=== PATIENT | female | born 1940 | race Caucasian/White ===

== ENCOUNTER 2017-03-10 21:47 | Emergency (ER) | payer MEDICARE ==
[~2017-03-10 21:47] MED LIST: Iopamidol 370 76% 100 ML VIAL ONE
[2017-03-10] MEDS ORDERED: Lorazepam 2 MG/ML VIAL ONE ×2 (22:11→22:56)
[2017-03-10] MEDS ORDERED: Magnesium Sulfate 2 GM/NS 0.9% 50 ML BAG ONE (22:11)
[2017-03-10] MEDS ORDERED: Sodium Chloride 0.9% 250 ML 250 ML ONE (22:11)
[2017-03-10 22:38] LABS: #Basophils 0.1 thou/uL (0.0-0.2); #Eosinphils 0.3 thou/uL (0.0-0.7); #Lymphocytes 1.8 thou/uL (1.20-3.40); #Monocytes 0.8 thou/uL (0.11-0.59); #Neutrophils 5.9 thou/uL (1.40-6.50); %Eosinophils 3.9 % (0.0-10.0); %Lymphocytes 20.5 % (21.0-51.0); %Monocytes 9.3 % (0.0-10.0); %Neutrophils 65.3 % (42.0-75.0); Hemoglobin 12.3 g/dL (12.0-16.0); Mean Corpuscular HGB CONC 32.1 g/dL (32.0-36.0); Mean Corpuscular Volume 90.2 fl (81.0-99.0); Mean Platelet Volume 6.1 fL (7.4-10.4); Platelet Count 252 thou/uL (130-400); RBC Distribution Width 13.5 % (11.5-14.5); Red Blood Cell (RBC) Count 4.26 mill/uL (4.20-5.40)
[2017-03-10 22:53] LABS: ALT (SGPT) 13 U/L (8-55); AST (SGOT) 14 U/L (5-34); Albumin 4.1 g/dL (3.4-4.8); Alkaline Phosphatase 64 U/L (40-150); Anion Gap 20 mmol/L (10-20); BUN (Urea Nitrogen) 13 mg/dL (9.8-20.1); Bilirubin, Total 0.4 mg/dL (0.2-1.2); Calc. Creatinine Clearance 0 mL/min (70-130); Carbon Dioxide 16 mmol/L (23-31); Chloride 102 mmol/L (98-107); Estimated GFR-MDRD 49; Globulin 3.5 g/dL (2.4-3.5); Glucose 174 mg/dL (83-110); Magnesium 1.8 mg/dL (1.6-2.6); Potassium 4.2 mmol/L (3.5-5.1); Protein, Total 7.6 g/dL (6.0-8.3); Sodium 134 mmol/L (136-145)
[2017-03-10 22:54] LABS: CKMB 1.7 ng/mL (0-6.6)
[2017-03-10 23:10] LABS: Bilirubin Negative (Negative); Blood, Urine Trace (Negative); Clarity Clear (Clear); Glucose, Urine (Dipstick) Negative (Negative); Leukocyte Trace (Negative); Nitrite Negative (Negative); Protein, Urine (Dipstick) Negative (Neg-Trace); Specific Gravity, Urine 1.015 (1.005-1.030); Urobilinogen 0.2 mg/dL (0.2-1.0); pH, Urine 7.5 (5.0-9.0)
[2017-03-10 23:12] LABS: Bacteria/HPF Rare-Few HPF (None Seen); RBC/HPF 0-3 HPF (0-3); Squamous Epithelial None Seen HPF (0-3)
--- NOTE | 2017-03-10 23:24 | RAD ---
PORTABLE SEMIUPRIGHT FRONTAL CHEST RADIOGRAPH 03/10/17 COMPARISON: 03/23/16 HISTORY: Two weeks of back spasms, chest pain and back pain. FINDINGS: Extensive postoperative hardware is seen overlying the midline thoracic cage, stable. No pneumothora x, pleural fluid, focal consolidation or alveolar edema. IMPRESSION: No acute findings - stable appearance of the chest. POS: [facility]
--- NOTE | 2017-03-10 23:35 | RAD ---
THREE VIEWS LUMBAR SPINE 03/10/17 COMPARISON: None. HISTORY: Two weeks of back spasms. FINDINGS: Five lumbar type vertebral bodies are present. There is anterolisthesis of L4 on L5 measuring 4-5 mm . There is facet hypertrophy at L4-5 and L5-S1. There is disc space narrowing at L5-S1 with vacuum d isc and anterior osteophyte formation. At L1-2, there is disc space narrowing, degenerative end plat e changes and anterior osteophyte formation with retrolisthesis measuring 3-4 mm. There is atheroscl erotic calcification of the abdominal aorta. No acute osseous abnormality. IMPRESSION: Multilevel degenerative change. No acute fracture or dislocation. POS: [facility]
--- NOTE | 2017-03-10 23:38 | RAD ---
FRONTAL AND LATERAL IMAGING CHEST 03/10/17 COMPARISON: None. HISTORY: Back spasms and pain. FINDINGS: There is extensive postoperative hardware associated with the anterior midline thoracic cage. Lateral imaging demonstrates a superior end plate fracture of the mid/lower thoracic spine, likely i nvolving the T8 vertebral body. There is 50% loss of vertebral body height. There is a mild superior end plate fracture at T10. IMPRESSION: Age indeterminate thoracic spine fractures. This includes a fracture of the T8 vertebral body with a pproximately 50% loss of vertebral body height. Acuity of this fracture could be best assessed via f ollowup CT or MRI as clinically indicated. POS: [facility]
[2017-03-10] MEDS ORDERED: Fentanyl 100 MCG/2 ML VIAL ONE (23:47)
[2017-03-11] MEDS ORDERED: Fentanyl 100 MCG/2 ML VIAL ONE ×3 (00:16→03:10)
--- NOTE | 2017-03-11 08:48 | CT ---
PRELIMINARY REPORT/[facility]/EMERGENCY AFTER HOURS PROCEDURE: EXAM: CT Abdomen and Pelvis With Intravenous Contrast CLINICAL HISTORY: 77 years old, female; Pain; Abdominal pain and other: Back; Other: All over mostly rt flank; Prior s urgery; Surgery date: 6+ months; Surgery type: Cyst removed from spine; Triple bypass, 3 stents, hys terectomy; Patient HX: Past medical history includes pulmonary disease, asthma, abdominal stents, ca rdiac history, myocardial infarction (2016), treated with stent placement, number of stents: 3, trip le bypass, diabetes, on insulin, age of onset: 58; Severe abd \T\ back pain due to spasms, most bindu re to rt side; Additional info: Gfr 49 TECHNIQUE: Axial computed tomography images of the abdomen and pelvis with intravenous contrast. This CT exam w as performed using one or more of the following dose reduction techniques: automated exposure contro l, adjustment of the mA and/or kV according to patient size, and/or use of iterative reconstruction technique. Coronal and sagittal reformatted images were created and reviewed. CONTRAST: 70 mL of ISOVUE 370 administered intravenously. EXAM DATE/TIME: Exam ordered 03/11/2017 12:42 AM COMPARISON: No relevant prior studies available. FINDINGS: Lower thorax: Small hiatal hernia. ABDOMEN: Liver: Unremarkable. No mass. Gallbladder and bile ducts: Unremarkable. No calcified stones. No ductal dilation. Pancreas: Unremarkable. No mass. No ductal dilation. Spleen: Unremarkable. No splenomegaly. Adrenals: Unremarkable. No mass. Kidneys and ureters: Unremarkable. No solid mass. No hydronephrosis. Stomach and bowel: Colonic diverticulosis. No diverticulitis. No obstruction. Appendix: Appendix not visualized. No evidence of appendicitis. PELVIS: Bladder: Unremarkable. No mass. Reproductive: Prior hysterectomy. ABDOMEN and PELVIS: Intraperitoneal space: Unremarkable. No free air. No significant fluid collection. Bones/joints: No acute fracture. No dislocation. Soft tissues: Unremarkable. Vasculature: Unremarkable. No abdominal aortic aneurysm. Lymph nodes: Unremarkable. No enlarged lymph nodes. IMPRESSION: No acute findings. Thank you for allowing us to participate in the care of your patient. Dictated and Authenticated by: Kevin Gatica MD 03/11/2017 1:05 AM Central Time ([place] \T\ [place]) FINAL REPORT ABDOMEN CT WITH CONTRAST PELVIS CT WITH CONTRAST HISTORY: Severe back pain. Abdominal pain. COMPARISON: None. TECHNIQUE: An abdomen and pelvis CT is performed with IV contrast. Enteric contrast was not administered. Cor onal reformatted images are submitted for interpretation. FINDINGS: This report is in agreement with the preliminary report by [facility]. No acute abnormality was in the abd omen or pelvis. POS: [facility]
== END 2017-03-11 04:36 | disposition short-term general hospital (02) ==
LOC: NAV ERS 21:47
DX: M48.54XA Collapsed vertebra, not elsewhere classified, thoracic region, initial encounter for fracture (principal); E11.9 Type 2 diabetes mellitus without complications; I25.10 Atherosclerotic heart disease of native coronary artery without angina pectoris; J45.909 Unspecified asthma, uncomplicated; I25.2 Old myocardial infarction; I10 Essential (primary) hypertension; Z79.899 Other long term (current) drug therapy; Z79.84 Long term (current) use of oral hypoglycemic drugs
CPT/HCPCS: 71010; 72070; 72100; 74177; 80053; 81003; 81015; 82553; 83735; 84484; 85025; 93005; 96365; 96366; 96375; 96376; J1170; J2060; J3010; J3475; J7050

== ENCOUNTER 2017-05-02 09:22 | Outpatient (CLI) | payer MEDICARE ==
[2017-05-02 13:53] LABS: #Basophils 0.1 thou/uL (0.0-0.2); #Eosinphils 0.6 thou/uL (0.0-0.7); #Lymphocytes 2.1 thou/uL (1.20-3.40); #Monocytes 0.7 thou/uL (0.11-0.59); #Neutrophils 5.5 thou/uL (1.40-6.50); %Basophils 0.9 % (0.0-1.0); %Eosinophils 6.6 % (0.0-10.0); %Neutrophils 61.6 % (42.0-75.0); Hemoglobin 13.7 g/dL (12.0-16.0); Mean Corpuscular HGB CONC 31.9 g/dL (32.0-36.0); Mean Corpuscular Hemoglobin 29.3 pg (27.0-31.0); Mean Corpuscular Volume 91.7 fl (81.0-99.0); Mean Platelet Volume 7.3 fL (7.4-10.4); Platelet Count 246 thou/uL (130-400); RBC Distribution Width 13.1 % (11.5-14.5); Red Blood Cell (RBC) Count 4.67 mill/uL (4.20-5.40)
[2017-05-02 14:01] LABS: ALT (SGPT) 13 U/L (8-55); AST (SGOT) 14 U/L (5-34); Albumin 4.2 g/dL (3.4-4.8); Alkaline Phosphatase 75 U/L (40-150); Anion Gap 19 mmol/L (10-20); BUN (Urea Nitrogen) 15 mg/dL (9.8-20.1); Bilirubin, Total 0.5 mg/dL (0.2-1.2); Calc. Creatinine Clearance 0 mL/min (70-130); Carbon Dioxide 23 mmol/L (23-31); Cardiac Risk 3.3 (Less than 4.5); Chloride 102 mmol/L (98-107); Cholesterol 144 mg/dl (< 200 Desired); Estimated GFR-MDRD 63; Globulin 2.5 g/dL (2.4-3.5); Glucose 155 mg/dL (83-110); HDL Cholesterol 43 mg/dL (>60 Neg Risk); LDL Cholesterol, Calculated 63 mg/dL; Potassium 4.7 mmol/L (3.5-5.1); Protein, Total 6.7 g/dL (6.0-8.3); Sodium 139 mmol/L (136-145); Triglycerides 189 mg/dL (Less than 150)
[2017-05-02 14:31] LABS: Hemoglobin A1c 6.6 % (4.0-6.0)
[2017-05-03 18:06] LABS: Creatinine, Urine 46.41 mg/dL (47-110); Microalbumin Urine Less than 1.0 mg/dL (0.5-50.0); Microalbumin/Creat Ratio 21.5 mg/g (Less than 30)
== END 2017-05-02 09:23 | disposition home or self-care (01) ==
LOC: NAVSJIPCSP 09:22
PROVIDERS: ATTEND Internal Medicine
DX: E11.51 Type 2 diabetes mellitus with diabetic peripheral angiopathy without gangrene (principal); I70.209 Unspecified atherosclerosis of native arteries of extremities, unspecified extremity; K21.9 Gastro-esophageal reflux disease without esophagitis; E03.9 Hypothyroidism, unspecified; I10 Essential (primary) hypertension
CPT/HCPCS: 36415; 80053; 80061; 82043; 83036; 84443; 85025

== ENCOUNTER 2017-05-26 11:52 | Outpatient (CLI) | payer MEDICARE ==
[2017-05-26 13:35] LABS: Anion Gap 18 mmol/L (10-20); BUN (Urea Nitrogen) 16 mg/dL (9.8-20.1); Calc. Creatinine Clearance 0 mL/min (70-130); Calcium 10.4 mg/dL (7.8-10.44); Carbon Dioxide 22 mmol/L (23-31); Chloride 103 mmol/L (98-107); Estimated GFR-MDRD 62; Glucose 169 mg/dL (83-110); Potassium 4.7 mmol/L (3.5-5.1); Sodium 138 mmol/L (136-145)
== END 2017-05-26 11:53 | disposition home or self-care (01) ==
LOC: NAVSJIPCSP 11:52
PROVIDERS: ATTEND Internal Medicine
DX: I50.9 Heart failure, unspecified (principal)
CPT/HCPCS: 36415; 80048; 83880

== ENCOUNTER 2017-08-03 14:57 | Outpatient (CLI) | payer MEDICARE ==
--- NOTE | 2017-08-03 15:50 | RAD ---
PA AND LATERAL CHEST: History: Cough. FINDINGS: Comparison is made with exam of 03-10-17. Post op changes and metallic hardware in the anterior midline thorax again seen. The heart size is b orderline. No focal areas of consolidation, pneumothorax, or pleural effusions are seen. There are p ost op changes of left rotator cuff repair surgery. There is marked compression of the mid thoracic vertebral body. IMPRESSION: No acute process. POS: [facility]
== END 2017-08-03 14:58 | disposition home or self-care (01) ==
LOC: NAV RAD 14:57
DX: R05 Cough (principal)
CPT/HCPCS: 71020

== ENCOUNTER 2017-09-28 12:46 | Outpatient (CLI) | payer MEDICARE ==
--- NOTE | 2017-09-28 16:25 | CT ---
NONCONTRAST CT OF THE THORACIC SPINE 09/28/17 INDICATION: History of T8-T9 spinal fractures in February 2017. FINDINGS: The severe compression abnormality involving T8 appears similar to the comparison MRI in May 2017. There is some vacuum disc phenomenon seen within the fracture site as well as within the T8-T9 inter vertebral disc level. The chronic appearing superior end plate fracture of T10 appears healed and unc hanged. Diffuse osteopenia is similar. No new acute fracture is evident. The mild retropulsion of bon e fragment of T8 induces stable mild osseous central canal narrowing as well as moderate right neural foraminal narrowing which is similar to the comparison exam. IMPRESSION: 1. Stable T8 vertebra plana with mild central canal narrowing seen at T8 vertebral level and mod erate right osseous neural foraminal narrowing seen at T8-T9. 2. Stable chronic superior end plate compression fracture of T10. 3. Diffuse osteopenia. POS: [facility]
== END 2017-09-28 12:47 | disposition home or self-care (01) ==
LOC: NAV CT 12:46
PROVIDERS: ATTEND Nurse Practitioner Family
DX: S22.009D Unspecified fracture of unspecified thoracic vertebra, subsequent encounter for fracture with routine healing (principal); M48.04 Spinal stenosis, thoracic region; M85.80 Other specified disorders of bone density and structure, unspecified site
CPT/HCPCS: 72128

== ENCOUNTER 2018-01-08 18:37 | Emergency (ER) | payer MEDICARE ==
[2018-01-08] MEDS ORDERED: Sodium Chloride 0.9% 1,000 ML ONE ×2 (18:51→19:21)
--- NOTE | 2018-01-08 19:13 | RAD ---
SITTING PORTABLE AP CHEST RADIOGRAPH: Date: 01-08-18 Comparison: 03-23-16 History: Shortness of breath, chest pain. FINDINGS: Cardiac silhouette is prominent. Multiple segments of hardware overlie the chest centrally. There is no pneumothorax or pleural fluid. No focal consolidation or alveolar edema. IMPRESSION: No acute findings. POS: [facility]
[2018-01-08 19:24] LABS: ALT (SGPT) 25 U/L (8-55); AST (SGOT) 24 U/L (5-34); Albumin 4.1 g/dL (3.4-4.8); Alkaline Phosphatase 56 U/L (40-150); Anion Gap 19 mmol/L (10-20); BUN (Urea Nitrogen) 24 mg/dL (9.8-20.1); Bilirubin, Total 0.2 mg/dL (0.2-1.2); Calc. Creatinine Clearance 0 mL/min (70-130); Carbon Dioxide 21 mmol/L (23-31); Chloride 103 mmol/L (98-107); Estimated GFR-MDRD 60; Globulin 2.8 g/dL (2.4-3.5); Glucose 143 mg/dL (83-110); Potassium 4.8 mmol/L (3.5-5.1); Protein, Total 6.9 g/dL (6.0-8.3); Sodium 138 mmol/L (136-145)
[2018-01-08 19:27] LABS: CKMB 1.9 ng/mL (0-6.6); Troponin I 0.022 ng/mL (< 0.028)
[2018-01-08 19:50] LABS: #Basophils 0.1 thou/uL (0.0-0.2); #Eosinphils 0.6 thou/uL (0.0-0.7); #Lymphocytes 2.9 thou/uL (1.20-3.40); #Monocytes 0.9 thou/uL (0.11-0.59); #Neutrophils 4.8 thou/uL (1.40-6.50); %Basophils 1.3 % (0.0-1.0); %Eosinophils 6.6 % (0.0-10.0); %Lymphocytes 30.6 % (21.0-51.0); %Neutrophils 51.5 % (42.0-75.0); Hemoglobin 11.8 g/dL (12.0-16.0); Mean Corpuscular Hemoglobin 29.2 pg (27.0-31.0); Mean Corpuscular Volume 91.2 fl (81.0-99.0); Mean Platelet Volume 8.1 fL (7.4-10.4); Platelet Count 206 thou/uL (130-400); RBC Distribution Width 13.2 % (11.5-14.5); Red Blood Cell (RBC) Count 4.03 mill/uL (4.20-5.40); White Blood Cell (WBC) Count 9.3 thou/uL (4.8-10.8)
[2018-01-08] MEDS ORDERED: Fentanyl 100 MCG/2 ML VIAL SLOW IVP SCH (21:15)
--- NOTE | 2018-01-08 22:04 | CT ---
CT ANGIOGRAM CHEST: Date: 01-08-18 History: Left sided shooting chest pain, shortness of breath. Technique: Serial axial CT imaging at 2.5 mm intervals from the thoracic inlet through the upper abdo men with IV contrast using a CT angiogram protocol. Coronal and oblique sagittal 3D reformatted imagi ng obtained. FINDINGS: The imaged upper abdomen demonstrates scattered atherosclerotic calcification of the abdominal aorta and its branches. There is a small sliding type hiatal hernia present. There is no significant pleura l, paracardial, or mediastinal fluid. The heart is enlarged. Extensive metallic hardware is seen over lying the sternum. No axillary lymphadenopathy. No enlarged hilar lymph nodes are seen. There are mul tiple mildly prominent prevascular nodes, nonspecific, measuring up to 1 cm in short axis dimension. Coronary arterial calcification and stent material noted. There is no filling defect seen within either main pulmonary artery or the pulmonary arterial trunk t o suggest the presence of a central pulmonary embolism. Motion slightly limits detailed assessment of the distal pulmonary arteries bilaterally. No evidence for a pulmonary embolism is seen. No pneumoth orax is noted on either side. There is mild bibasilar linear interstitial prominence and there is mild ground glass opacity in the left upper lobe and inferior aspect of both lower lobes. This could signify a mild degree of edema, b ut this could also be somewhat artifactual on the basis of respiratory motion artifact and volume los s. There is a medialized retropharyngeal course of bilateral common carotid arteries. Severe burst fracture with marked loss of vertebral body height noted at T8, stable when compared to a thoracic spine CT performed 09-28-17. IMPRESSION: No evidence for pulmonary embolism. Multiple incidental findings as described above including severe burst fracture/vertebroplana at T8 vertebral body. POS: [facility]
== END 2018-01-08 23:00 | disposition short-term general hospital (02) ==
LOC: NAV ERS 18:37
DX: I44.1 Atrioventricular block, second degree (principal); J45.909 Unspecified asthma, uncomplicated; I25.2 Old myocardial infarction; E11.9 Type 2 diabetes mellitus without complications; I10 Essential (primary) hypertension; E66.9 Obesity, unspecified; Z79.4 Long term (current) use of insulin; F17.220 Nicotine dependence, chewing tobacco, uncomplicated; Z79.899 Other long term (current) drug therapy
CPT/HCPCS: 71045; 71275; 80053; 82553; 83880; 84484; 85025; 85379; 93005; 94760; 96361; 96374; 96375; J3010; J7050

== ENCOUNTER 2018-07-17 22:57 | Emergency (ER) | payer MEDICARE ==
[2018-07-17 23:57] LABS: #Basophils 0.1 thou/uL (0.0-0.2); #Eosinphils 0.3 thou/uL (0.0-0.7); #Lymphocytes 1.5 thou/uL (1.20-3.40); #Monocytes 0.7 thou/uL (0.11-0.59); #Neutrophils 5.9 thou/uL (1.40-6.50); %Basophils 0.8 % (0.0-1.0); %Lymphocytes 17.9 % (21.0-51.0); %Monocytes 8.2 % (0.0-10.0); Hemoglobin 11.7 g/dL (12.0-16.0); Mean Corpuscular Hemoglobin 30.2 pg (27.0-31.0); Mean Corpuscular Volume 97.4 fL (78.0-98.0); Mean Platelet Volume 6.9 fL (7.4-10.4); Platelet Count 261 thou/uL (130-400); RBC Distribution Width 12.9 % (11.5-14.5); Red Blood Cell (RBC) Count 3.88 mill/uL (4.20-5.40); White Blood Cell (WBC) Count 8.6 thou/uL (4.8-10.8)
[2018-07-18 00:13] LABS: ALT (SGPT) 14 U/L (8-55); AST (SGOT) 13 U/L (5-34); Alkaline Phosphatase 59 U/L (40-150); Anion Gap 17 mmol/L (10-20); BUN (Urea Nitrogen) 24 mg/dL (9.8-20.1); Bilirubin, Total 0.5 mg/dL (0.2-1.2); CKMB 1.6 ng/mL (0-6.6); Calc. Creatinine Clearance 0 mL/min (70-130); Calcium 10.2 mg/dL (7.8-10.44); Carbon Dioxide 23 mmol/L (23-31); Chloride 100 mmol/L (98-107); Estimated GFR-MDRD 39; Globulin 3.2 g/dL (2.4-3.5); Glucose 294 mg/dL (83-110); Lipase 9 U/L (8-78); Potassium 4.7 mmol/L (3.5-5.1); Protein, Total 7.2 g/dL (6.0-8.3); Sodium 135 mmol/L (136-145); Troponin I 0.022 ng/mL (< 0.028)
[2018-07-18 00:14] LABS: Bilirubin Negative (Negative); Blood, Urine Negative (Negative); Clarity Hazy (Clear); Glucose, Urine (Dipstick) 500 mg/dL (Negative); Leukocyte Small (Negative); Nitrite Negative (Negative); Protein, Urine (Dipstick) Negative (Neg-Trace); Specific Gravity, Urine 1.015 (1.005-1.030); Urobilinogen 0.2 mg/dL (0.2-1.0)
[2018-07-18 00:17] LABS: Bacteria/HPF 1+ HPF (None Seen); RBC/HPF None Seen HPF (0-3); Squamous Epithelial 0-3 HPF (0-3)
--- NOTE | 2018-07-18 07:27 | RAD ---
4 VIEWS RIGHT ELBOW: Date: 07/18/18 INDICATION: Right elbow pain. FINDINGS: There is mild osteoarthrosis of the right elbow joint. Enthesopathic change is seen off the medial hu meral epicondyle and olecranon process. No humeral capsular distention is evident. No acute fracture is noted. Radiocapitellar alignment appears within normal limits. IMPRESSION: No acute osseous abnormality. POS: [facility]
--- NOTE | 2018-07-18 07:38 | RAD ---
PA AND LATERAL CHEST: Date: 07/17/18 INDICATION: History of chills, diaphoresis, body aches, and smoking. COMPARISON: Prior exam dated 08/03/17. FINDINGS: There is stable cardiomegaly. COPD change is stable. There has been interval kyphoplasty change at T7 . The wedge compression abnormality of T8 is stable. There is diffuse osteopenia. IMPRESSION: 1. Stable cardiomegaly and COPD change. 2. Interval kyphoplasty of T7. 3. Stable severe wedge compression abnormality of T8. POS: [facility]
--- NOTE | 2018-07-18 09:04 | CT ---
PRELIMINARY REPORT/[facility]/EMERGENTY AFTER-HOURS PROCEDURE CT Abdomen and Pelvis Without Intravenous Contrast EXAM DATE/TIME: 07/18/2018 1:03 AM CLINICAL HISTORY: 78 years old, female; Pain; Abdominal pain; Localized; Left; Prior surgery; Surgery date: 6+ months; Surgery type: Back (cyst off of spine), vertebroplasty (t8), hysterectomy, cardiac stents and bypass. ; Patient HX: C/O left abd pain, overall malaise; Additional info: Patient here C/O acute onset chills, diaphoresis and malaise/fatigue. She has had numerous mi in the past, last stent in 2016 per family, HX of cabg. She denies cp or pressure. She states she had left sided abd pain, sharp nonradiating of f/on today no assoc with exertion. Denies resp symptoms, no cough. She denies urinary changes. Denies diarrhea. She does state she has chronic upper abd pain for years unchanged TECHNIQUE: Axial computed tomography images of the abdomen and pelvis without intravenous contrast. All CT scans at this facility use at least one of these dose optimization techniques: automated exposure control; mA and/or kV adjustment per patient size (includes targeted exams where dose is matched to clinical indication); or iterative reconstruction. Coronal and sagittal reformatted images were created and reviewed. COMPARISON: No relevant prior studies available. FINDINGS: Lower thorax: Cardiomegaly. ABDOMEN: Liver: Normal. No mass. Gallbladder and bile ducts: Normal. No calcified stones. No ductal dilation. Pancreas: Normal. No ductal dilation. Spleen: Normal. No splenomegaly. Adrenals: Normal. No mass. Kidneys and ureters: Normal. No hydronephrosis. Stomach and bowel: Colonic diverticulosis. No diverticulitis. No bowel wall thickening or intestinal obstruction. Appendix: Appendix not visualized. No evidence of appendicitis. PELVIS: Bladder: Unremarkable as visualized. Reproductive: Prior hysterectomy. ABDOMEN and PELVIS: Intraperitoneal space: Normal. No free air. No significant fluid collection. Bones/joints: No acute fracture. No dislocation. Soft tissues: Unremarkable. Vasculature: Normal. No abdominal aortic aneurysm. Lymph nodes: Normal. No enlarged lymph nodes. Other findings: 2 cm AAA. No rupture. IMPRESSION: No acute findings. Thank you for allowing us to participate in the care of your patient. Dictated and Authenticated by: Kevin Gatica MD 07/18/2018 1:54 AM Central Time ([place] & [place]) FINAL REPORT CT ABDOMEN AND PELVIS WITHOUT CONTRAST: Date: 07/18/18 FINDINGS/IMPRESSION: I agree with the preliminary report given by [facility]. POS: [facility]
== END 2018-07-18 02:35 | disposition short-term general hospital (02) ==
LOC: NAV ERS 22:57
DX: R61 Generalized hyperhidrosis (principal); R94.31 Abnormal electrocardiogram [ECG] [EKG]; R74.0 Nonspecific elevation of levels of transaminase and lactic acid dehydrogenase [LDH]; R21 Rash and other nonspecific skin eruption; I25.10 Atherosclerotic heart disease of native coronary artery without angina pectoris; I25.2 Old myocardial infarction; E11.9 Type 2 diabetes mellitus without complications; E03.9 Hypothyroidism, unspecified; E78.5 Hyperlipidemia, unspecified; I10 Essential (primary) hypertension; J45.909 Unspecified asthma, uncomplicated; F32.9 Major depressive disorder, single episode, unspecified; F17.220 Nicotine dependence, chewing tobacco, uncomplicated; Z79.4 Long term (current) use of insulin; Z79.899 Other long term (current) drug therapy; Z79.82 Long term (current) use of aspirin
CPT/HCPCS: 36416; 71046; 74176; 80053; 81003; 81015; 82553; 83605; 83690; 84484; 85025; 87086; 93005; 94760; 96360

== ENCOUNTER 2019-11-23 12:03 | Outpatient (CLI) | payer MEDICARE ==
--- NOTE | 2019-11-23 14:15 | RAD ---
LUMBAR SPINE SERIES 4 VIEWS WITH FLEXION AND EXTENSION: HISTORY: Back pain. FINDINGS: Vertebral bodies appear demineralized. Vertebral body height is well maintained. There is marked di sk narrowing at L1-2, L4-5, and L5-S1. Spondylolisthesis of L4 on L5 approximately 12 mm is seen. O n the flexion view, it increases slightly to 14 mm and I believe slightly decreases in extension. IMPRESSION: Marked arthritic changes of the spine with spondylolisthesis of L4 on L5 appears to accentuate in fle xion. POS: [facility]
== END 2019-11-23 12:04 | disposition home or self-care (01) ==
LOC: NAV RAD 12:03
PROVIDERS: ATTEND Specialist
DX: M43.16 Spondylolisthesis, lumbar region (principal); M47.816 Spondylosis without myelopathy or radiculopathy, lumbar region
CPT/HCPCS: 72120

== ENCOUNTER 2020-01-02 13:36 | Outpatient (CLI) | payer MEDICARE ==
--- NOTE | 2020-01-02 17:35 | CT ---
CT ABDOMEN AND PELVIS PERFORMED WITHOUT CONTRAST ENHANCEMENT: 01/02/20 HISTORY: Left sided abdomen pain. History of hysterectomy and appendectomy. Ordering physician requested no IV or oral contrast for this study. COMPARISON: 08/04/18 study. Lung bases show some chronic appearing change. Small hiatal hernia is noted. Tiny hypodensity within the dome of the liver statistically most likely represents a cyst. Spleen is unremarkable. The pancre as is atrophic. Gallbladder region also appears unremarkable. Right and left adrenal glands and right and left kidneys are normal in size. No renal calculi are earl ntified. No obstruction or ureteral calculi are seen. There is no significant periaortic or mesenteri c adenopathy. Moderate atherosclerotic change within the infrarenal abdominal aorta. Diverticulosis o f the colon is noted more pronounced in the sigmoid region without evidence of any inflammatory proce ss. No adenopathy, mass or free fluid. IMPRESSION: 1. Colonic diverticulosis. 2. Small hiatal hernia. POS: [facility]
== END 2020-01-02 13:37 | disposition home or self-care (01) ==
LOC: NAV CT 13:36
PROVIDERS: ATTEND Internal Medicine
DX: R10.12 Left upper quadrant pain (principal); K57.30 Diverticulosis of large intestine without perforation or abscess without bleeding; K44.9 Diaphragmatic hernia without obstruction or gangrene
CPT/HCPCS: 74176

== ENCOUNTER 2020-10-01 16:08 | Emergency (ER) | payer MEDICARE ==
[2020-10-01] MEDS ORDERED: Ondansetron PF 4 MG/2 ML Vial ONE (17:52)
[2020-10-01] MEDS ORDERED: Morphine 4 MG/ML VIAL ONE (17:52)
[2020-10-01] MEDS ORDERED: Nitroglycerin 2% Ointment 1 INCH/1 GM Packet ONE (17:52)
[2020-10-01 19:10] LABS: ALT (SGPT) 14 U/L (8-55); AST (SGOT) 14 U/L (5-34); Albumin 3.7 g/dL (3.4-4.8); Alkaline Phosphatase 64 U/L (40-110); Anion Gap 17 mmol/L (10-20); BUN (Urea Nitrogen) 16 mg/dL (9.8-20.1); Bilirubin, Total 0.3 mg/dL (0.2-1.2); CK (CPK) 74 U/L (29-168); Calc. Creatinine Clearance 0 mL/min (70-130); Calcium 8.9 mg/dL (7.8-10.44); Carbon Dioxide 24 mmol/L (23-31); Chloride 97 mmol/L (98-107); Globulin 2.8 g/dL (2.4-3.5); Lipase 9 U/L (8-78); Potassium 3.9 mmol/L (3.5-5.1); Protein, Total 6.5 g/dL (6.0-8.3); Sodium 134 mmol/L (136-145)
[2020-10-01 19:11] LABS: Glucose 321 mg/dL (83-110)
[2020-10-01 19:30] LABS: #Basophils 0.1 thou/uL (0.0-0.2); #Eosinphils 0.4 thou/uL (0.0-0.7); #Monocytes 0.7 thou/uL (0.11-0.59); #Neutrophils 3.8 thou/uL (1.40-6.50); %Basophils 1.2 % (0.0-1.0); %Eosinophils 5.2 % (0.0-10.0); %Lymphocytes 28.6 % (21.0-51.0); %Monocytes 9.5 % (0.0-10.0); %Neutrophils 55.6 % (42.0-75.0); Hemoglobin 13.2 g/dL (12.0-16.0); Mean Corpuscular Hemoglobin 31.3 pg (27.0-31.0); Mean Corpuscular Volume 94.8 fL (78.0-98.0); Mean Platelet Volume 6.3 fL (7.4-10.4); Platelet Count 236 thou/uL (130-400); White Blood Cell (WBC) Count 6.9 thou/uL (4.8-10.8)
--- NOTE | 2020-10-01 19:46 | RAD ---
CHEST ONE VIEW: 10/01/20 HISTORY: Chest pain. COMPARISON: Chest radiograph 02/11/20. FINDINGS: plate and screw fixation of the sternum is similar. Lungs are clear. No pneumothorax. No effusion. He art size is mildly enlarged. Tendon suture anchor left humeral head. IMPRESSION: No acute intrathoracic abnormality. POS: [facility]
== END 2020-10-01 19:00 | disposition short-term general hospital (02) ==
LOC: NAV ERS 16:08
DX: R07.9 Chest pain, unspecified (principal); E11.9 Type 2 diabetes mellitus without complications; E03.9 Hypothyroidism, unspecified; E78.5 Hyperlipidemia, unspecified; E78.00 Pure hypercholesterolemia, unspecified; I10 Essential (primary) hypertension; F17.210 Nicotine dependence, cigarettes, uncomplicated; Z79.899 Other long term (current) drug therapy; Z79.82 Long term (current) use of aspirin
CPT/HCPCS: 71045; 80053; 82550; 83690; 83880; 84484; 85025; 93005; 96374; 96375; J2270; J2405

== ENCOUNTER 2020-11-09 11:23 | Emergency (ER) | payer MEDICARE ==
[2020-11-09 11:57] LABS: #Basophils 0.1 thou/uL (0.0-0.2); #Eosinphils 0.3 thou/uL (0.0-0.7); #Lymphocytes 1.3 thou/uL (1.20-3.40); #Monocytes 0.7 thou/uL (0.11-0.59); #Neutrophils 4.1 thou/uL (1.40-6.50); %Basophils 0.9 % (0.0-1.0); %Eosinophils 4.1 % (0.0-10.0); %Lymphocytes 19.7 % (21.0-51.0); %Monocytes 10.8 % (0.0-10.0); %Neutrophils 64.6 % (42.0-75.0); Hemoglobin 12.3 g/dL (12.0-16.0); Mean Corpuscular HGB CONC 31.8 g/dL (32.0-36.0); Mean Corpuscular Hemoglobin 30.3 pg (27.0-31.0); Mean Corpuscular Volume 95.3 fL (78.0-98.0); Mean Platelet Volume 6.8 fL (7.4-10.4); Platelet Count 219 thou/uL (130-400); RBC Distribution Width 12.8 % (11.5-14.5); Red Blood Cell (RBC) Count 4.07 mill/uL (4.20-5.40); White Blood Cell (WBC) Count 6.4 thou/uL (4.8-10.8)
--- NOTE | 2020-11-09 12:04 | RAD ---
XR Chest 1 View Portable History: Dyspnea Comparison: Radiograph September 2020 Findings: Heart size is enlarged. Sternal closure device is intact. No pneumothorax. Mild pulmonary v enous congestion. Impression: Cardiomegaly and mild pulmonary venous congestion. No evidence for pneumonia.
[2020-11-09 12:15] LABS: ALT (SGPT) 11 U/L (8-55); AST (SGOT) 12 U/L (5-34); Albumin 3.7 g/dL (3.4-4.8); Alkaline Phosphatase 59 U/L (40-110); Anion Gap 16 mmol/L (10-20); BUN (Urea Nitrogen) 16 mg/dL (9.8-20.1); Bilirubin, Total 0.6 mg/dL (0.2-1.2); CK (CPK) 61 U/L (29-168); Calc. Creatinine Clearance 0 mL/min (70-130); Calcium 9.5 mg/dL (7.8-10.44); Carbon Dioxide 24 mmol/L (23-31); Chloride 96 mmol/L (98-107); Globulin 3.2 g/dL (2.4-3.5); Glucose 249 mg/dL (83-110); Potassium 4.1 mmol/L (3.5-5.1); Protein, Total 6.9 g/dL (6.0-8.3); Sodium 132 mmol/L (136-145)
[2020-11-09 12:19] LABS: Lipase 3 U/L (8-78)
--- NOTE | 2020-11-09 12:20 | CT ---
CT Brain WO Con History: Headache Comparison: CT brain 2018 Findings: Moderate atrophy. No acute hemorrhage or infarct. No midline shift or mass effect. Moderate calcifications both basal ganglia. Impression: Chronic findings. No acute intracranial abnormality.
[2020-11-09 12:34] LABS: CKMB 1.9 ng/mL (0-6.6)
[2020-11-09] MEDS ORDERED: Aspirin Chewable 81 MG TAB ONE (12:37)
== END 2020-11-09 13:38 | disposition short-term general hospital (02) ==
LOC: NAV ERS 11:23
DX: I11.0 Hypertensive heart disease with heart failure (principal); I50.9 Heart failure, unspecified; R77.8 Other specified abnormalities of plasma proteins; E11.9 Type 2 diabetes mellitus without complications; E03.9 Hypothyroidism, unspecified; E78.5 Hyperlipidemia, unspecified; F17.220 Nicotine dependence, chewing tobacco, uncomplicated; Z79.82 Long term (current) use of aspirin; Z79.899 Other long term (current) drug therapy
CPT/HCPCS: 70450; 71045; 80053; 82550; 82553; 83690; 83880; 84484; 85025; 93005

== ENCOUNTER 2020-11-16 14:33 | Inpatient (IN) | payer MEDICARE ==
[2020-11-16] MEDS ORDERED: Nystatin Powder 15 GM BOT TOP PRN (17:00)
[2020-11-16] MEDS ORDERED: Dextrose 5% in Water 1,000 ML IV PRN (17:15)
[2020-11-16] MEDS ORDERED: HumaLOG 300 UNITS/3 ML VIAL SC PRN (17:15)
[2020-11-16] MEDS ORDERED: Dextrose 50% Abboject 50 ML SYRINGE IVP PRN (17:15)
[2020-11-16] MEDS: HYDROcodone/Acetaminophen 5/325 mg Tablet PO PRN ×2 (17:19→23:21)
[2020-11-16] MEDS: HumaLOG 300 UNITS/3 ML VIAL SC PRN (17:21)
[2020-11-16] MEDS: Carvedilol 3.125 MG TAB PO SCH (17:22)
[2020-11-16] MEDS: Gabapentin 300 MG CAP PO SCH (20:29)
[2020-11-16] MEDS: Apixaban 5 MG TAB PO SCH (20:32)
[2020-11-16] MEDS: Atorvastatin Calcium 40 MG TAB PO SCH (20:32)
[2020-11-17] MEDS: Levothyroxine Sodium 75 MCG TAB PO SCH (05:27)
[2020-11-17] MEDS ORDERED: HumuLIN 70/30 (300 UNITS/3 ML VIAL) SC SCH ×2 (07:30→16:30)
[2020-11-17] MEDS: HYDROcodone/Acetaminophen 5/325 mg Tablet PO PRN ×2 (09:06→20:05)
[2020-11-17] MEDS: Nicotine 14 MG PATCH TOP SCH (09:07)
[2020-11-17] MEDS: Polyethylene Glycol 3350 17 GM Packet PO SCH (09:07)
[2020-11-17] MEDS: Carvedilol 3.125 MG TAB PO SCH ×2 (09:09→17:56)
[2020-11-17] MEDS: DULoxetine 30 MG CAP PO SCH (09:09)
[2020-11-17] MEDS: Cholecalciferol 1,000 UNITS (25 MCG) TAB PO SCH (09:10)
[2020-11-17] MEDS: Apixaban 5 MG TAB PO SCH ×2 (09:10→20:06)
[2020-11-17] MEDS: Gabapentin 300 MG CAP PO SCH ×2 (09:11→20:07)
[2020-11-17] MEDS: Amiodarone 200 MG TAB PO SCH (09:12)
[2020-11-17] MEDS: Furosemide 20 MG TAB PO SCH (09:13)
[2020-11-17 10:24] LABS: #Basophils 0.1 thou/uL (0.0-0.2); #Eosinphils 0.1 thou/uL (0.0-0.7); #Lymphocytes 2.2 thou/uL (1.20-3.40); #Monocytes 1.1 thou/uL (0.11-0.59); %Basophils 0.6 % (0.0-1.0); %Eosinophils 1.6 % (0.0-10.0); %Monocytes 11.2 % (0.0-10.0); %Neutrophils 63.6 % (42.0-75.0); Hemoglobin 12.8 g/dL (12.0-16.0); Mean Corpuscular Hemoglobin 31.3 pg (27.0-31.0); Mean Corpuscular Volume 94.7 fL (78.0-98.0); Mean Platelet Volume 6.2 fL (7.4-10.4); Platelet Count 271 thou/uL (130-400); RBC Distribution Width 12.5 % (11.5-14.5); Red Blood Cell (RBC) Count 4.08 mill/uL (4.20-5.40); White Blood Cell (WBC) Count 9.4 thou/uL (4.8-10.8)
[2020-11-17 10:28] LABS: Chloride 94 mmol/L (98-107); Potassium 4.6 mmol/L (3.5-5.1); Sodium 133 mmol/L (136-145)
[2020-11-17 10:48] LABS: ALT (SGPT) 21 U/L (8-55); AST (SGOT) 16 U/L (5-34); Albumin 3.6 g/dL (3.4-4.8); Alkaline Phosphatase 51 U/L (40-110); BUN (Urea Nitrogen) 30 mg/dL (9.8-20.1); Bilirubin, Total 0.5 mg/dL (0.2-1.2); Calc. Creatinine Clearance 54 mL/min (70-130); Calcium 8.8 mg/dL (7.8-10.44); Carbon Dioxide 26 mmol/L (23-31); Globulin 2.8 g/dL (2.4-3.5); Glucose 302 mg/dL (83-110); Protein, Total 6.4 g/dL (5.8-8.1)
[2020-11-17 10:59] LABS: Anion Gap 18 mmol/L (10-20)
[2020-11-17] MEDS: HumaLOG 300 UNITS/3 ML VIAL SC PRN ×2 (12:50→17:52)
[2020-11-17] MEDS: Atorvastatin Calcium 40 MG TAB PO SCH (20:07)
[2020-11-18] MEDS: HYDROcodone/Acetaminophen 5/325 mg Tablet PO PRN ×3 (05:30→18:38)
[2020-11-18] MEDS: Levothyroxine Sodium 75 MCG TAB PO SCH (05:31)
--- NOTE | 2020-11-18 07:15 | HP ---
HISTORY OF PRESENT ILLNESS: The patient is an 80-year-old white female with multiple medical problems, well known to myself, who presented to the [facility] Emergency Room on November 09 with complaints of weakness, shortness of breath, and confusion. She was found to have an exacerbation of her chronic systolic congestive heart failure and was diuresed with improvement in her shortness of breath, but with development of acute kidney injury, which stabilized when switched to oral furosemide. She also has a history of COPD and continued nicotine abuse, and was started on oral steroids and medications and improved greatly. She was also started on nicotine patch and has not smoked. Since admission, her delirium and confusion resolved within several days after improvement in her history of heart failure and COPD. She initially required oxygen, but was weaned off this. She also has a history of insulin-dependent type 2 diabetes, which was initially controlled with sliding scale and has now on her prehospitalization medications of Humulin 70/30 and is being titrated for tight control. She, however, has become severely deconditioned and is unable to maintain ADLs as she has been living alone at home, and family wishes her to come to the swing bed for PT and OT while monitoring her cardiorespiratory status and determining her ability for care for herself at home. She is a full code. MEDICATIONS: Her medications at this time include: 1. Amiodarone 200 mg daily. 2. Apixaban 5 mg twice daily. 3. Atorvastatin 40 mg nightly. 4. Carvedilol 3.125 mg twice daily. 5. Duloxetine 60 mg daily. 6. Furosemide 20 mg daily p.o. 7. Gabapentin 600 mg twice daily. 8. Humulin 70/30 of 17 units in the morning and 15 units . 9. Isosorbide mononitrate 30 mg daily. 10. Handheld nebulizer with DuoNeb q.4 hours p.r.n. 11. Nicotine patch 14 mg daily topically. 12. Protonix 40 daily. 13. MiraLAX 17 g daily. 14. Ranexa 500 mg twice daily. ALLERGIES: SHE HAS HISTORY OF ALLERGIES TO BUPROPION, ROPINIROLE WITH CONFUSION. PAST MEDICAL HISTORY: Positive for atrial fibrillation, coronary artery disease, systolic congestive heart failure with ejection fraction 25%, hypertension, hyperlipidemia, chronic kidney disease stage 3, diabetes 2 insulin-dependent, hypothyroidism, chronic low back pain secondary to osteoarthritis, and degenerative disk disease. PAST SURGICAL HISTORY: Positive for coronary artery bypass graft, appendectomy, coronary stent, and cataract surgery. FAMILY MEDICAL HISTORY: Noncontributory. SOCIAL HISTORY: She has been living alone. She still smokes half a pack to pack cigarettes daily. She does not drink alcohol. REVIEW OF SYSTEMS: HEENT: She has had recent cataract surgery, but has stable vision. No pain in her eyes. She has no earache, sore throat, fever, or chills. RESPIRATORY: She complains of shortness of breath with exertion and wheezing, initially greatly improved at this time and no symptoms at rest, but only shortness of breath on exertion. She has no cough or sputum production. CARDIOVASCULAR: She denies chest pain or palpitations. Has chronic two-pillow orthopnea. Has improved edema. GASTROINTESTINAL: She denies nausea, vomiting, or abdominal pain. GENITOURINARY: She denies dysuria, hematuria, or nocturia. MUSCULOSKELETAL: She has chronic back pain. SKIN AND EXTREMITIES: She has history of cellulitis in the past, now resolved. NEUROLOGIC: She denies localized numbness or weakness in arms or extremities. PHYSICAL EXAMINATION: GENERAL: The patient is an elderly white female, lying in bed, in no acute distress. Oriented x3 and cooperative. VITAL SIGNS: Blood pressure 146/67, O2 sats 100% on 1.5 L, pulse 71, and temperature 97.4. HEENT: Pupils are equal, round, and react to light and accommodation. Sclerae anicteric. Conjunctivae pale. Oral mucous membranes well hydrated. NECK: Supple. No nodes or masses. JVP is not elevated. LUNGS: Clear with decreased breath sounds in the bases. CARDIAC: Shows regular rhythm. No gallops or murmurs. ABDOMEN: Soft and nontender. SKIN AND EXTREMITIES: Display 1+ edema. No clubbing or cyanosis. NEUROLOGIC: Cranial nerves 2 through 12 are intact. Deep tendon reflex 2+ and equal. Absent Babinski's. LABORATORY DATA: Shows white count 9400, hematocrit 38, hemoglobin 12. Sodium 133, potassium 4.6, chloride 94, bicarb 26, BUN 30, creatinine 1.21. She has had her baseline glucose 302 with Accu-Cheks range from 155 to 313. Calcium 8.8. Total bilirubin 0.5, AST 16, ALT 21, alkaline phosphatase 51. BNP 420, which is improved from 1719 on admission. Total protein 6.4, albumin 3.6, globulin 2.8. Recent imaging shows cardiomegaly with no gross infiltrates or pulmonary edema on admission to [facility]. Renal ultrasound showed no hydronephrosis. ASSESSMENT: An 80-year-old white female with multiple medical problems including type 2 diabetes, diffuse coronary artery disease, chronic pain, continued nicotine abuse, chronic obstructive pulmonary disease, and chronic kidney disease stage 3, who has developed exacerbation of her systolic congestive heart failure, requiring IV diuresis with improvement in her shortness of breath, confusion and delirium. Her COPD has also been treated when she is being weaned off her oxygen therapy. She is still abusing nicotine, but has started on nicotine patch to this admission, is still not smoking. She has history of coronary artery disease, but has not had any acute ischemic events. Her diabetes has been uncontrolled here in the hospital, but will be titrated to control while she is in the skilled unit. She is, however, still significantly weak and therefore, we will start on PT/OT while her cardiopulmonary, respiratory status is being evaluated. PLAN: 1. PT/OT. 2. Continue Accu-Cheks to monitor and titrate and control diabetes. 3. Start on Novolin 70/30 of 17 in the morning and 15 and titrate up as needed. 4. Continue on low dose furosemide at 20 mg daily and monitor renal function closely. 5. Continue chronic pain control with gabapentin and duloxetine. 6. Continue nicotine patch. 7. Continue rate control and anticoagulation for paroxysmal atrial fibrillation and obtain EKG to document rhythm. 8. Continue isosorbide and Ranexa for treatment of chronic coronary artery disease. 9. Continue stress ulcer prophylaxis with Protonix. Job ID: [id number]
[2020-11-18] MEDS: HumuLIN 70/30 (300 UNITS/3 ML VIAL) SC SCH ×2 (07:45→16:33)
[2020-11-18] MEDS: Cholecalciferol 1,000 UNITS (25 MCG) TAB PO SCH (09:14)
[2020-11-18] MEDS: Polyethylene Glycol 3350 17 GM Packet PO SCH (09:14)
[2020-11-18] MEDS: Nicotine 14 MG PATCH TOP SCH (09:15)
[2020-11-18] MEDS: DULoxetine 30 MG CAP PO SCH (09:17)
[2020-11-18] MEDS: Gabapentin 300 MG CAP PO SCH ×2 (09:17→21:13)
[2020-11-18] MEDS: Apixaban 5 MG TAB PO SCH ×2 (09:18→21:13)
[2020-11-18] MEDS: Amiodarone 200 MG TAB PO SCH (09:18)
[2020-11-18] MEDS: Furosemide 20 MG TAB PO SCH (09:19)
[2020-11-18] MEDS: Carvedilol 3.125 MG TAB PO SCH ×2 (09:19→17:32)
[2020-11-18] MEDS: HumaLOG 300 UNITS/3 ML VIAL SC PRN ×3 (12:23→21:14)
[2020-11-18] MEDS: Atorvastatin Calcium 40 MG TAB PO SCH (21:13)
[2020-11-19 05:52] LABS: Anion Gap 12 mmol/L (10-20); BUN (Urea Nitrogen) 27 mg/dL (9.8-20.1); Calc. Creatinine Clearance 58 mL/min (70-130); Calcium 9.1 mg/dL (7.8-10.44); Carbon Dioxide 32 mmol/L (23-31); Chloride 92 mmol/L (98-107); Glucose 143 mg/dL (83-110); Potassium 4.4 mmol/L (3.5-5.1); Sodium 132 mmol/L (136-145)
[2020-11-19] MEDS: Levothyroxine Sodium 75 MCG TAB PO SCH (06:13)
[2020-11-19] MEDS: Cholecalciferol 1,000 UNITS (25 MCG) TAB PO SCH (08:28)
[2020-11-19] MEDS: DULoxetine 30 MG CAP PO SCH (08:28)
[2020-11-19] MEDS: Gabapentin 300 MG CAP PO SCH ×2 (08:29→21:02)
[2020-11-19] MEDS: Furosemide 20 MG TAB PO SCH (08:29)
[2020-11-19] MEDS: Amiodarone 200 MG TAB PO SCH (08:29)
[2020-11-19] MEDS: Carvedilol 3.125 MG TAB PO SCH ×2 (08:29→17:32)
[2020-11-19] MEDS: Nicotine 14 MG PATCH TOP SCH (08:29)
[2020-11-19] MEDS: Apixaban 5 MG TAB PO SCH ×2 (08:29→21:03)
[2020-11-19] MEDS: Polyethylene Glycol 3350 17 GM Packet PO SCH (08:30)
[2020-11-19] MEDS: HumuLIN 70/30 (300 UNITS/3 ML VIAL) SC SCH ×2 (08:31→17:32)
[2020-11-19] MEDS: HYDROcodone/Acetaminophen 5/325 mg Tablet PO PRN ×2 (08:36→18:18)
[2020-11-19] MEDS: HumaLOG 300 UNITS/3 ML VIAL SC PRN ×2 (12:03→17:33)
[2020-11-19] MEDS ORDERED: Ondansetron ODT 4 MG TAB PO PRN (18:22)
[2020-11-19] MEDS: Atorvastatin Calcium 40 MG TAB PO SCH (21:04)
[2020-11-20] MEDS: HYDROcodone/Acetaminophen 5/325 mg Tablet PO PRN ×3 (00:34→19:33)
--- NOTE | 2020-11-20 06:01 | PRG ---
DATE OF SERVICE: 11/18/2020 SUBJECTIVE: The patient lying in bed, resting, having no shortness of breath or chest pain, stating that she is ready to do therapy and is strong enough to go home. OBJECTIVE: VITAL SIGNS: Temperature 97.8, pulse 79, respirations 18, O2 sats 97% on 1.5 L, blood pressure 141/65. LUNGS: Clear. CARDIAC EXAMINATION: Shows regular rhythm. ABDOMEN: Soft and nontender. SKIN AND EXTREMITIES: Show significantly tender back to palpation with bilateral muscle spasms. LABORATORY DATA: White count of 9400, hematocrit 38, hemoglobin 12. Sodium is 133, potassium 4.6, chloride 94, bicarb 26, BUN 30, creatinine 1.21. Liver functions normal. Blood glucose is 302. ASSESSMENT: 1. Type 2 diabetes with poor control, start on her prehospitalization medications and titrate as needed. 2. Chronic obstructive pulmonary disease, stable. 3. Chronic pain with questionable pain medication abuse. 4. Continued nicotine abuse, on nicotine patch at this time. 5. Chronic systolic congestive heart failure with recent exacerbation, resolving with IV diuresis. 6. Severe deconditioning. 7. Paroxysmal atrial fibrillation, rate controlled on anticoagulation. 8. Recurrent angina secondary to chronic coronary artery disease, nonsurgical, improved with isosorbide, Ranexa. PLAN: 1. PT/OT. 2. Titrate 70/30 to control diabetes. 3. Continue gentle diuresis with furosemide and monitor renal function. 4. Continue isosorbide, Ranexa, and monitor chronic coronary artery disease. 5. Continue pain medication, gabapentin, and duloxetine, and hydrocodone as ordered by pain specialist. Job ID: [id number]
--- NOTE | 2020-11-20 06:08 | PRG ---
DATE OF SERVICE: 11/19/2020 SUBJECTIVE: The patient is complaining of back pain but no shortness of breath. No chest pain. She does states that she did walk with Therapy today. Has been eating well with no nausea vomiting but is complaining of some nausea now, afternoon. OBJECTIVE: VITAL SIGNS: Temperature 97.4, pulse 77, respirations 18, O2 sats 97% on 0.5 L, blood pressure 122/58. LUNGS: Clear. CARDIAC: Shows regular rhythm. BACK: Shows palpable spasms with pain. Does note chronic pain, on duloxetine and gabapentin and we will discuss increasing doses LABORATORY DATA: Sodium is 132, potassium 4.4, chloride 92, bicarb 32, BUN 27, creatinine 1.12. Accu-Cheks ranged from 167 to 234, calcium 9.1. ASSESSMENT: 1. She has had problems with . 2. Coronary artery disease with chronic angina controlled with Ranexa and isosorbide. We will continue. 3. Type 2 diabetes, on Humulin 70/30, and sliding scale with persistent elevation of glucose after meals. PLAN: 1. Increase Humulin 70/32 to 19 units morning, 17 units in the afternoon. 2. Continue Ranexa and isosorbide. 3. Discuss pain medications with family and pain physician. 4. Continue PT/OT. 5. Continue gentle diuresis furosemide 20 daily and continue to monitor stable renal. Job ID: [id number]
[2020-11-20] MEDS: Levothyroxine Sodium 75 MCG TAB PO SCH (06:24)
[2020-11-20] MEDS: HumuLIN 70/30 (300 UNITS/3 ML VIAL) SC SCH ×2 (08:31→17:01)
[2020-11-20] MEDS: Gabapentin 300 MG CAP PO SCH (08:33)
[2020-11-20] MEDS: Amiodarone 200 MG TAB PO SCH (08:33)
[2020-11-20] MEDS: Furosemide 20 MG TAB PO SCH (08:33)
[2020-11-20] MEDS: Carvedilol 3.125 MG TAB PO SCH ×2 (08:33→17:01)
[2020-11-20] MEDS: DULoxetine 30 MG CAP PO SCH (08:33)
[2020-11-20] MEDS: Apixaban 5 MG TAB PO SCH ×2 (08:33→20:40)
[2020-11-20] MEDS: Polyethylene Glycol 3350 17 GM Packet PO SCH (08:37)
[2020-11-20] MEDS: Cholecalciferol 1,000 UNITS (25 MCG) TAB PO SCH (08:38)
[2020-11-20] MEDS: Nicotine 14 MG PATCH TOP SCH (08:51)
[2020-11-20] MEDS ORDERED: Silver Sulfadiazine 50 GM TUBE ONE (09:11)
[2020-11-20] MEDS ORDERED: Silver Sulfadiazine 50 GM TUBE TOP SCH (10:45)
[2020-11-20] MEDS: HumaLOG 300 UNITS/3 ML VIAL SC PRN ×2 (12:27→17:01)
[2020-11-20] MEDS: Atorvastatin Calcium 40 MG TAB PO SCH (20:41)
[2020-11-20] MEDS: traZODone HCl 50 MG TAB PO PRN (23:14)
[2020-11-21] MEDS: HYDROcodone/Acetaminophen 5/325 mg Tablet PO PRN ×3 (04:33→20:42)
[2020-11-21] MEDS: Levothyroxine Sodium 75 MCG TAB PO SCH (05:03)
[2020-11-21 05:43] LABS: Hemoglobin 12.8 g/dL (12.0-16.0); Platelet Count 281 thou/uL (130-400)
[2020-11-21] MEDS: HumuLIN 70/30 (300 UNITS/3 ML VIAL) SC SCH ×2 (07:55→17:21)
[2020-11-21] MEDS: Carvedilol 3.125 MG TAB PO SCH ×2 (09:10→17:22)
[2020-11-21] MEDS: Furosemide 20 MG TAB PO SCH (09:12)
[2020-11-21] MEDS: Cholecalciferol 1,000 UNITS (25 MCG) TAB PO SCH (09:12)
[2020-11-21] MEDS: Apixaban 5 MG TAB PO SCH ×2 (09:12→20:42)
[2020-11-21] MEDS: DULoxetine 30 MG CAP PO SCH (09:13)
[2020-11-21] MEDS: Nicotine 14 MG PATCH TOP SCH (09:13)
[2020-11-21] MEDS: Amiodarone 200 MG TAB PO SCH (09:13)
[2020-11-21] MEDS: Polyethylene Glycol 3350 17 GM Packet PO SCH (09:13)
--- NOTE | 2020-11-21 12:15 | PRG ---
DATE OF SERVICE: 11/21/2020 SUBJECTIVE: The patient is up in the wheelchair, working with therapy, alert, but stating that this pain medicine is not helping her. I advised her that we will increase to 5 every 8 hours of hydrocodone, but that will be the limit as requested by her pain physician and her family as she cannot tolerate any higher than that because of confusion, which she states she cannot remember. OBJECTIVE: VITAL SIGNS: Show blood pressure 150/67, pulse 72, O2 saturation is 97% on 1.5 L. LUNGS: Clear. CARDIAC: Showed regular rhythm. ABDOMEN: Soft, nontender. SKIN AND EXTREMITIES: Show severe tenderness to palpation of the back. ASSESSMENT: 1. Chronic lower back pain secondary to degenerative disk disease, joint disease, osteoporosis, and we will increase hydrocodone to 5/325 every 8 hours as a maximum. 2. Coronary artery disease, ischemic cardiomyopathy, asymptomatic, on Ranexa and isosorbide, and we will continue on these medications during therapy. 3. Deconditioning, improving with PT/OT. 4. Systolic heart failure, stable on furosemide 20 mg daily and we will continue as renal function appears to be tolerating. PLAN: 1. Continue PT/OT. 2. Continue Humulin 70/30, it appears to be improving on 19 units in the morning and 17 in the evening. 3. Continue Ranexa and isosorbide for ischemic cardiomyopathy. 4. Continue furosemide 20 daily and check renal function tomorrow. 5. I stressed the patient that any confusion caused by the pain medication will cause her medication to be decreased. Job ID: [id number]
[2020-11-21] MEDS: HumaLOG 300 UNITS/3 ML VIAL SC PRN (12:21)
[2020-11-21] MEDS: Atorvastatin Calcium 40 MG TAB PO SCH (20:42)
[2020-11-22] MEDS: Levothyroxine Sodium 75 MCG TAB PO SCH (05:25)
[2020-11-22 05:36] LABS: Anion Gap 15 mmol/L (10-20); BUN (Urea Nitrogen) 18 mg/dL (9.8-20.1); Calc. Creatinine Clearance 55 mL/min (70-130); Calcium 9.1 mg/dL (7.8-10.44); Carbon Dioxide 28 mmol/L (23-31); Chloride 94 mmol/L (98-107); Glucose 113 mg/dL (83-110)
[2020-11-22 05:38] LABS: Sodium 133 mmol/L (136-145)
--- NOTE | 2020-11-22 05:46 | PRG ---
DATE OF SERVICE: 11/20/2020 SUBJECTIVE: The patient lying in the bed, stating that she needs more pain medication. However, discussed with her daughter, who states that she was confused last night on the increased dose of medication and wishes her to stay on only 2.5 to 5 mg every 8 hours of the [place] 5/325. She has been eating well and has been cooperating with therapy except for the pain. She is denying any chest pain. OBJECTIVE: VITAL SIGNS: Shows temperature is 97, pulse 78, respirations 20, O2 sats 98% on 1.5 L, blood pressure 137/61. Accu-Cheks slightly elevated at 167 to 231. LUNGS: Clear. CARDIAC: Shows regular rhythm. ABDOMEN: Soft and nontender. SKIN/EXTREMITIES: Show a few diffuse ecchymoses and some tenderness in her legs and chronically in her back. ASSESSMENT: 1. Chronic pain secondary to severe degenerative disk disease, joint disease, and compression fractures. 2. Insulin-dependent diabetes mellitus, slight improvement on increased Humulin to 19 in the morning, 17 in the evening. We will continue to monitor. 3. Ischemic cardiomyopathy, stable on Ranexa and isosorbide. 4. Congestive heart failure, stable with gentle diuresis and we will monitor renal function. PLAN: 1. [place] 5/325 one half tablet every 8 hours. 2. Continue PT/OT. 3. Continue gentle diuresis with furosemide 20 mg daily. 4. Continue duloxetine and gabapentin for chronic pain. 5. Continue Humulin 70/30, units in the morning and in the evening. Continue to monitor Accu-Cheks. Job ID: [id number]
[2020-11-22] MEDS: Nicotine 14 MG PATCH TOP SCH (08:42)
[2020-11-22] MEDS: HumuLIN 70/30 (300 UNITS/3 ML VIAL) SC SCH ×2 (08:42→17:16)
[2020-11-22] MEDS: Polyethylene Glycol 3350 17 GM Packet PO SCH (08:42)
[2020-11-22] MEDS: Cholecalciferol 1,000 UNITS (25 MCG) TAB PO SCH (08:43)
[2020-11-22] MEDS: Furosemide 20 MG TAB PO SCH (08:43)
[2020-11-22] MEDS: Amiodarone 200 MG TAB PO SCH (08:43)
[2020-11-22] MEDS: Apixaban 5 MG TAB PO SCH ×2 (08:43→20:58)
[2020-11-22] MEDS: DULoxetine 30 MG CAP PO SCH (08:43)
[2020-11-22] MEDS: Carvedilol 3.125 MG TAB PO SCH ×2 (08:44→17:16)
[2020-11-22] MEDS: HumaLOG 300 UNITS/3 ML VIAL SC PRN (18:22)
[2020-11-22] MEDS: HYDROcodone/Acetaminophen 5/325 mg Tablet PO PRN (19:25)
[2020-11-22] MEDS: Atorvastatin Calcium 40 MG TAB PO SCH (20:58)
[2020-11-23] MEDS: HYDROcodone/Acetaminophen 5/325 mg Tablet PO PRN ×3 (02:21→19:24)
[2020-11-23] MEDS: Levothyroxine Sodium 75 MCG TAB PO SCH (05:10)
--- NOTE | 2020-11-23 06:44 | PRG ---
DATE OF SERVICE: 11/22/2020 SUBJECTIVE: The patient lying in bed, in no distress. States that she needs more pain medication and is asking when she can be discharged home. Discussed with the daughter about her evaluation at [facility] and her admission here for PT and decision by pain physician to continue on 5 mg of hydrocodone and that would not increase medications because of confusion when this happens. Also advised her the photovoltaic subcontractor has felt that she is not a surgical candidate for her back pain and she needs to discuss with him. PLAN: 1. Continue PT, OT. 2. Continue hydrocodone 5/325 every 8 hours. 3. Continue Ranexa for angina and low-dose furosemide and amiodarone and apixaban. LABORATORY DATA: Laboratories today show a sodium of 133, potassium 4.0, chloride 94, bicarb 28, BUN is 18, creatinine 1.16, GFR 45, glucose 113. BNP of 153. Job ID: [id number]
--- NOTE | 2020-11-23 07:06 | PRG ---
DATE OF SERVICE: 11/21/2020 SUBJECTIVE: The patient is up in the [place], working with therapy, but stating that the 2.5 mg hydrocodone is not enough to control her pain, is requesting to go back to 5/325 every 8 hours. She is cooperating with therapy and is getting better and has not been confused on this dose; therefore, we will increase the dose and agreed her that this is going to be the maximum without talking to her pain physician. OBJECTIVE: VITAL SIGNS: Show temperature 96.7, pulse 64, respirations 20, O2 sats 97% on room air, and blood pressure 113/53. LUNGS: Clear. CARDIAC: Shows regular rhythm. ABDOMEN: Soft and nontender. SKIN/EXTREMITIES: Show tenderness to palpation of the lower back. NEUROLOGIC: Intact. LABORATORY DATA: Hemoglobin 12.8, hematocrit 37. Glucose 121. ASSESSMENT: 1. Stable systolic heart failure. 2. Chronic back pain with persistent pain on lower dose of hydrocodone and we will increase to 5 mg daily, but after discussion with the daughter, we will not increase further as she has become confused on higher dose. 3. Type 2 diabetes, controlled to goal. 4. Acute on chronic kidney injury stabilized with chronic kidney disease stage 3. 5. Anxiety, stable on duloxetine. 6. Paroxysmal atrial fibrillation, rate controlled on anticoagulation with apixaban and amiodarone. 7. Chronic coronary artery disease and angina, controlled on Ranexa and isosorbide. PLAN: 1. Increase hydrocodone to 5 mg/325 every 8 hours. 2. Continue PT/OT. 3. Advised the patient that when she is able to maintain ADLs, she can be discharged home. Job ID: [id number]
[2020-11-23] MEDS: Apixaban 5 MG TAB PO SCH ×2 (08:15→21:26)
[2020-11-23] MEDS: DULoxetine 30 MG CAP PO SCH (08:15)
[2020-11-23] MEDS: Carvedilol 3.125 MG TAB PO SCH ×2 (08:15→17:12)
[2020-11-23] MEDS: Cholecalciferol 1,000 UNITS (25 MCG) TAB PO SCH (08:15)
[2020-11-23] MEDS: Amiodarone 200 MG TAB PO SCH (08:15)
[2020-11-23] MEDS: Furosemide 20 MG TAB PO SCH (08:15)
[2020-11-23] MEDS: Nicotine 14 MG PATCH TOP SCH (08:16)
[2020-11-23] MEDS: HumuLIN 70/30 (300 UNITS/3 ML VIAL) SC SCH ×2 (08:16→17:12)
[2020-11-23] MEDS: Polyethylene Glycol 3350 17 GM Packet PO SCH (08:16)
[2020-11-23] MEDS: HumaLOG 300 UNITS/3 ML VIAL SC PRN (13:04)
[2020-11-23] MEDS: Atorvastatin Calcium 40 MG TAB PO SCH (21:26)
[2020-11-24] MEDS: Levothyroxine Sodium 75 MCG TAB PO SCH (05:04)
[2020-11-24] MEDS: HumuLIN 70/30 (300 UNITS/3 ML VIAL) SC SCH ×2 (08:53→17:25)
[2020-11-24] MEDS: Amiodarone 200 MG TAB PO SCH (08:54)
[2020-11-24] MEDS: Apixaban 5 MG TAB PO SCH ×2 (08:54→21:22)
[2020-11-24] MEDS: Carvedilol 3.125 MG TAB PO SCH ×2 (08:54→17:27)
[2020-11-24] MEDS: Furosemide 20 MG TAB PO SCH (08:54)
[2020-11-24] MEDS: DULoxetine 30 MG CAP PO SCH (08:54)
[2020-11-24] MEDS: Nicotine 14 MG PATCH TOP SCH (08:55)
[2020-11-24] MEDS: Cholecalciferol 1,000 UNITS (25 MCG) TAB PO SCH ×2 (08:56→12:17)
[2020-11-24] MEDS: Polyethylene Glycol 3350 17 GM Packet PO SCH (08:57)
[2020-11-24] MEDS: HYDROcodone/Acetaminophen 5/325 mg Tablet PO PRN ×2 (08:58→17:26)
[2020-11-24] MEDS: HumaLOG 300 UNITS/3 ML VIAL SC PRN ×3 (12:11→20:31)
[2020-11-24] MEDS: Atorvastatin Calcium 40 MG TAB PO SCH (21:23)
[2020-11-24] MEDS: traZODone HCl 50 MG TAB PO PRN (22:59)
[2020-11-25] MEDS: Levothyroxine Sodium 75 MCG TAB PO SCH (06:43)
[2020-11-25] MEDS: DULoxetine 30 MG CAP PO SCH (08:19)
[2020-11-25] MEDS: Polyethylene Glycol 3350 17 GM Packet PO SCH (08:19)
[2020-11-25] MEDS: Nicotine 14 MG PATCH TOP SCH (08:19)
[2020-11-25] MEDS: Furosemide 20 MG TAB PO SCH (08:20)
[2020-11-25] MEDS: Amiodarone 200 MG TAB PO SCH (08:20)
[2020-11-25] MEDS: Apixaban 5 MG TAB PO SCH ×2 (08:22→21:21)
[2020-11-25] MEDS: Carvedilol 3.125 MG TAB PO SCH ×2 (08:25→16:42)
[2020-11-25] MEDS: HumuLIN 70/30 (300 UNITS/3 ML VIAL) SC SCH ×2 (08:28→16:44)
[2020-11-25] MEDS: HYDROcodone/Acetaminophen 5/325 mg Tablet PO PRN ×2 (08:30→16:42)
[2020-11-25] MEDS: Cholecalciferol 1,000 UNITS (25 MCG) TAB PO SCH (08:34)
[2020-11-25] MEDS: HumaLOG 300 UNITS/3 ML VIAL SC PRN (12:00)
[2020-11-25] MEDS: Atorvastatin Calcium 40 MG TAB PO SCH (21:21)
[2020-11-26] MEDS: HYDROcodone/Acetaminophen 5/325 mg Tablet PO PRN ×3 (00:43→20:44)
[2020-11-26] MEDS: Levothyroxine Sodium 75 MCG TAB PO SCH (07:23)
[2020-11-26] MEDS: HumuLIN 70/30 (300 UNITS/3 ML VIAL) SC SCH ×2 (08:28→17:39)
[2020-11-26] MEDS: Polyethylene Glycol 3350 17 GM Packet PO SCH (08:28)
[2020-11-26] MEDS: DULoxetine 30 MG CAP PO SCH (08:29)
[2020-11-26] MEDS: Carvedilol 3.125 MG TAB PO SCH ×2 (08:30→17:39)
[2020-11-26] MEDS: Amiodarone 200 MG TAB PO SCH (08:30)
[2020-11-26] MEDS: Cholecalciferol 1,000 UNITS (25 MCG) TAB PO SCH (08:30)
[2020-11-26] MEDS: Apixaban 5 MG TAB PO SCH ×2 (08:30→20:45)
[2020-11-26] MEDS: Furosemide 20 MG TAB PO SCH (08:30)
[2020-11-26] MEDS: Nicotine 14 MG PATCH TOP SCH (08:30)
--- NOTE | 2020-11-26 11:00 | PRG ---
DATE OF SERVICE: 11/23/2020 SUBJECTIVE: The patient lying in bed, resting, asking when she can be discharged home and is ready for more therapy tomorrow. Denying any chest pain or shortness of breath. She is asking about increased pain medication, but advised her that would not go higher without talking to her family and her pain physician. OBJECTIVE: VITAL SIGNS: Shows temperature 99.1, pulse 69, respirations 20, O2 sats 100% on 1.5 L, blood pressure 197/70. Accu-Cheks ranged from 101 to 169. LUNGS: Clear. CARDIAC: Regular rhythm. ABDOMEN: Soft and nontender. SKIN/EXTREMITIES: Shows 1+ edema. ASSESSMENT: 1. Stable chronic ischemic cardiomyopathy, on medical treatment. 2. Stable chronic pain secondary to severe to degenerative disk disease. 3. with inability to increase hydrocodone more than 5 mg . 4. Stable insulin-dependent diabetes mellitus, controlled on increased Humulin of 19 in the morning and 17 in the evening. 5. Congestive heart failure, improved with gentle diuresis and stable renal function. PLAN: 1. Continue [place] 5/325 every 8 hours. 2. Continue furosemide 20 mg daily. 3. Continue duloxetine and gabapentin for pain. 4. Continue 19 units in the morning and 17 in the evening. 5. Start PT/OT tomorrow. Job ID: [id number]
--- NOTE | 2020-11-26 11:06 | PRG ---
DATE OF SERVICE: 11/25/2020 SUBJECTIVE: The patient is sitting up, eating supper, alert and cheerful. Her family has met in conference and plan to take her home on November 29. She is working well with therapy and control pain and shortness of breath. OBJECTIVE: VITAL SIGNS: Temperature 97, pulse 66, respirations 18, O2 sats 99% on 1.5 L, blood pressure 125/52. LUNGS: Clear. CARDIAC: Shows irregular rhythm. ABDOMEN: Soft, nontender, but obese. SKIN/EXTREMITIES: Show 1+ edema. No clubbing or cyanosis. NEUROLOGICAL: Intact. LABORATORY DATA: Accu-Cheks ranging from 140 to 192. ASSESSMENT: 1. Insulin-dependent diabetes mellitus, controlled to goal. 2. Ischemic cardiomyopathy, asymptomatic, on medical treatment with Ranexa and isosorbide. 3. Atrial fibrillation with rate control and anticoagulation with amiodarone, apixaban. 4. Chronic back pain, controlled with gabapentin, duloxetine, and [place] 5/325 every 8 hours. 5. Deconditioning, improving with therapy. PLAN: 1. Continue PT and OT. 2. Continue pain medications as scheduled. 3. Continue to monitor for recurrent angina, shortness of breath with exercise. 4. Continue Accu-Cheks to monitor and titrate and control diabetes medications. Job ID: [id number]
--- NOTE | 2020-11-26 11:25 | PRG ---
DATE OF SERVICE: 11/24/2020 SUBJECTIVE: The patient feels well in the wheelchair, taking her pain medicine regularly and walking with therapy and is asking when she can be discharged home. Discussed condition with her daughter who will come in tomorrow for physical therapy conference to determine ability to care for the patient at home. OBJECTIVE: VITAL SIGNS: Show temperature 97, pulse 72, respirations 18, O2 saturation is 100% on room air, blood pressure 125/52. LUNGS: Clear. CARDIAC: Showed regular rhythm. ABDOMEN: Soft and nontender. SKIN/EXTREMITIES: Display no edema, clubbing, or cyanosis. ABDOMEN: Obese. ASSESSMENT: 1. Stable degenerative disk disease lumbar spine, on hydrocodone 5/325 every 8 hours. 2. Ischemic cardiomyopathy, asymptomatic, on Ranexa and isosorbide. 3. compensated congestive heart failure, stable on furosemide and carvedilol. 4. Stable atrial fibrillation with rate control on anticoagulation. 5. Anxiety and depression, controlled with . PLAN: 1. Continue PT, OT. 2. Family and physical therapy conference tomorrow. 3. Continue pain medications as ordered. 4. Review vital signs with therapy. 5. Continue stress ulcer and DVT prophylaxis. 6. Continue rate control and anticoagulation of atrial fibrillation. Job ID: [id number]
[2020-11-26 13:58] LABS: #Basophils 0.1 thou/uL (0.0-0.2); #Eosinphils 0.2 thou/uL (0.0-0.7); #Lymphocytes 1.9 thou/uL (1.20-3.40); #Monocytes 0.8 thou/uL (0.11-0.59); #Neutrophils 5.3 thou/uL (1.40-6.50); %Basophils 0.9 % (0.0-1.0); %Eosinophils 2.3 % (0.0-10.0); %Lymphocytes 23.1 % (21.0-51.0); %Monocytes 9.4 % (0.0-10.0); %Neutrophils 64.4 % (42.0-75.0); Hemoglobin 12.9 g/dL (12.0-16.0); Mean Corpuscular HGB CONC 32.8 g/dL (32.0-36.0); Mean Corpuscular Hemoglobin 31.4 pg (27.0-31.0); Mean Corpuscular Volume 95.8 fL (78.0-98.0); Mean Platelet Volume 5.6 fL (7.4-10.4); Platelet Count 271 thou/uL (130-400); RBC Distribution Width 12.9 % (11.5-14.5); Red Blood Cell (RBC) Count 4.09 mill/uL (4.20-5.40); White Blood Cell (WBC) Count 8.3 thou/uL (4.8-10.8)
[2020-11-26 14:10] LABS: ALT (SGPT) 17 U/L (8-55); AST (SGOT) 15 U/L (5-34); Albumin 3.7 g/dL (3.4-4.8); Alkaline Phosphatase 48 U/L (40-110); Anion Gap 15 mmol/L (10-20); BUN (Urea Nitrogen) 14 mg/dL (9.8-20.1); Bilirubin, Total 0.5 mg/dL (0.2-1.2); Calc. Creatinine Clearance 45 mL/min (70-130); Carbon Dioxide 29 mmol/L (23-31); Chloride 94 mmol/L (98-107); Globulin 2.9 g/dL (2.4-3.5); Glucose 121 mg/dL (83-110); Potassium 4.7 mmol/L (3.5-5.1); Protein, Total 6.6 g/dL (5.8-8.1); Sodium 133 mmol/L (136-145)
[2020-11-26] MEDS: Atorvastatin Calcium 40 MG TAB PO SCH (20:45)
[2020-11-26] MEDS: traZODone HCl 50 MG TAB PO PRN (20:45)
[2020-11-27 06:02] VITALS: BMI 29.2
[2020-11-27] MEDS: Levothyroxine Sodium 75 MCG TAB PO SCH (06:02)
--- NOTE | 2020-11-27 07:52 | PRG ---
DATE OF SERVICE: 11/26/2020 SUBJECTIVE: The patient is sitting up, eating supper, feels wells, asking about discharge medications and is happy about her progress and discharge plan home. She is denying any chest pain or shortness of breath. She is having persistent back pain, but tolerable working with therapy. OBJECTIVE: VITAL SIGNS: Temperature is 98.6, pulse 66, respirations 20, O2 saturations 95% on room air, and blood pressure 142/58. LUNGS: Clear with only a few rhonchi. CARDIAC: Shows irregularly irregular rhythm. ABDOMEN: Soft and nontender. SKIN/EXTREMITIES: Shows 1+ edema. LABORATORY DATA: White count is 8300, hematocrit 39, and hemoglobin 12. Sodium 133, potassium 4.7, chloride 94, bicarb 29, BUN 14, creatinine 1.39, and glucose 121. BNP 346. AST 15, ALT 17. ASSESSMENT: 1. Stable degenerative disk disease and joint disease with chronic pain, controlled on hydrocodone 5/325 every 8 hours. 2. Ischemic cardiomyopathy, asymptomatic, on Ranexa and isosorbide. We will continue. 3. Congestive heart failure with elevated BNP, diastolic, but stable on furosemide and carvedilol. 4. Atrial fibrillation with rate control and anticoagulation. 5. Anxiety and depression, stable. PLAN: 1. Continue PT, OT. 2. Continue pain relief, hydrocodone. 3. Continue to monitor for recurrent ischemia, exacerbation of congestive heart failure. 4. Continue furosemide 20 mg daily. Has elevated BNP, but stable renal function. Monitor closely. 5. Plan for discharge on November 28 with [facility]. Job ID: [id number]
[2020-11-27] MEDS: DULoxetine 30 MG CAP PO SCH (08:13)
[2020-11-27] MEDS: Apixaban 5 MG TAB PO SCH ×2 (08:13→20:23)
[2020-11-27] MEDS: Furosemide 20 MG TAB PO SCH (08:14)
[2020-11-27] MEDS: HumuLIN 70/30 (300 UNITS/3 ML VIAL) SC SCH ×2 (08:14→17:01)
[2020-11-27] MEDS: Polyethylene Glycol 3350 17 GM Packet PO SCH (08:14)
[2020-11-27] MEDS: Amiodarone 200 MG TAB PO SCH (08:14)
[2020-11-27] MEDS: Carvedilol 3.125 MG TAB PO SCH ×2 (08:14→17:01)
[2020-11-27] MEDS: Nicotine 14 MG PATCH TOP SCH (08:14)
[2020-11-27] MEDS: Cholecalciferol 1,000 UNITS (25 MCG) TAB PO SCH (08:15)
[2020-11-27 11:43] LABS: Anion Gap 15 mmol/L (10-20); BUN (Urea Nitrogen) 12 mg/dL (9.8-20.1); Calc. Creatinine Clearance 54 mL/min (70-130); Calcium 8.7 mg/dL (7.8-10.44); Carbon Dioxide 26 mmol/L (23-31); Chloride 95 mmol/L (98-107); Glucose 184 mg/dL (83-110); Potassium 3.9 mmol/L (3.5-5.1); Sodium 132 mmol/L (136-145)
[2020-11-27] MEDS: HYDROcodone/Acetaminophen 5/325 mg Tablet PO PRN ×2 (13:44→23:23)
[2020-11-27] MEDS: HumaLOG 300 UNITS/3 ML VIAL SC PRN (13:46)
[2020-11-27] MEDS: Atorvastatin Calcium 40 MG TAB PO SCH (20:23)
[2020-11-28] MEDS: Levothyroxine Sodium 75 MCG TAB PO SCH (05:35)
[2020-11-28 05:47] LABS: Hemoglobin 12.3 g/dL (12.0-16.0); Platelet Count 201 thou/uL (130-400)
[2020-11-28 07:52] VITALS: BP 147/71; TEMP 96
[2020-11-28] MEDS: HumuLIN 70/30 (300 UNITS/3 ML VIAL) SC SCH (08:33)
[2020-11-28] MEDS: Cholecalciferol 1,000 UNITS (25 MCG) TAB PO SCH (08:34)
[2020-11-28] MEDS: Polyethylene Glycol 3350 17 GM Packet PO SCH (08:34)
[2020-11-28] MEDS: Amiodarone 200 MG TAB PO SCH (08:35)
[2020-11-28] MEDS: Carvedilol 3.125 MG TAB PO SCH (08:35)
[2020-11-28] MEDS: Nicotine 14 MG PATCH TOP SCH (08:35)
[2020-11-28] MEDS: Furosemide 20 MG TAB PO SCH (08:35)
[2020-11-28] MEDS: DULoxetine 30 MG CAP PO SCH (08:35)
[2020-11-28] MEDS: Apixaban 5 MG TAB PO SCH (08:35)
== END 2020-11-28 10:40 | disposition home health service (06) | DRG 948 ==
LOC: NAV ACUTE 14:33
PROVIDERS: ADMIT Internal Medicine; ATTEND Internal Medicine
DX: R53.1 Weakness (principal); I50.22 Chronic systolic (congestive) heart failure; I13.0 Hypertensive heart and chronic kidney disease with heart failure and stage 1 through stage 4 chronic kidney disease, or unspecified chronic kidney disease; N17.9 Acute kidney failure, unspecified; I48.0 Paroxysmal atrial fibrillation; N18.30 Chronic kidney disease, stage 3 unspecified; E11.22 Type 2 diabetes mellitus with diabetic chronic kidney disease; J44.9 Chronic obstructive pulmonary disease, unspecified; E03.9 Hypothyroidism, unspecified; M19.90 Unspecified osteoarthritis, unspecified site; I25.119 Atherosclerotic heart disease of native coronary artery with unspecified angina pectoris; M81.0 Age-related osteoporosis without current pathological fracture; I25.5 Ischemic cardiomyopathy; F41.9 Anxiety disorder, unspecified; F32.9 Major depressive disorder, single episode, unspecified; M51.9 Unspecified thoracic, thoracolumbar and lumbosacral intervertebral disc disorder; Z79.899 Other long term (current) drug therapy; Z79.4 Long term (current) use of insulin; Z90.49 Acquired absence of other specified parts of digestive tract; Z95.1 Presence of aortocoronary bypass graft; Z95.5 Presence of coronary angioplasty implant and graft; Z98.49 Cataract extraction status, unspecified eye; Z88.8 Allergy status to other drugs, medicaments and biological substances
CPT/HCPCS: 36416; 80048; 80053; 82565; 83880; 85014; 85018; 85025; 85049; J1815; Q0162

== ENCOUNTER 2021-04-30 17:09 | Emergency (ER) | payer MEDICARE ==
[2021-04-30] MEDS ORDERED: Morphine 4 MG/ML VIAL ONE (18:13)
[2021-04-30] MEDS ORDERED: Ondansetron PF 4 MG/2 ML Vial ONE (18:13)
[2021-04-30 18:33] LABS: ALT (SGPT) 23 U/L (8-55); AST (SGOT) 21 U/L (5-34); Albumin 3.4 g/dL (3.4-4.8); Alkaline Phosphatase 66 U/L (40-110); Anion Gap 16 mmol/L (10-20); BUN (Urea Nitrogen) 16 mg/dL (9.8-20.1); Bilirubin, Total 0.6 mg/dL (0.2-1.2); CK (CPK) 45 U/L (29-168); Calc. Creatinine Clearance 0 mL/min (70-130); Calcium 8.9 mg/dL (7.8-10.44); Carbon Dioxide 23 mmol/L (23-31); Chloride 99 mmol/L (98-107); Glucose 268 mg/dL (83-110); Potassium 4.6 mmol/L (3.5-5.1); Protein, Total 6.4 g/dL (5.8-8.1); Sodium 133 mmol/L (136-145)
[2021-04-30 18:37] LABS: #Basophils 0.1 thou/uL (0.0-0.2); #Eosinphils 0.1 thou/uL (0.0-0.7); #Lymphocytes 0.9 thou/uL (1.20-3.40); #Monocytes 0.6 thou/uL (0.11-0.59); #Neutrophils 5.2 thou/uL (1.40-6.50); %Eosinophils 1.6 % (0.0-10.0); %Lymphocytes 12.4 % (21.0-51.0); %Monocytes 9.2 % (0.0-10.0); %Neutrophils 75.8 % (42.0-75.0); Hemoglobin 10.5 g/dL (12.0-16.0); Mean Corpuscular HGB CONC 29.1 g/dL (32.0-36.0); Mean Corpuscular Hemoglobin 26.5 pg (27.0-31.0); Mean Corpuscular Volume 90.9 fL (78.0-98.0); Platelet Count 152 thou/uL (130-400); RBC Distribution Width 15.4 % (11.5-14.5); Red Blood Cell (RBC) Count 3.98 mill/uL (4.20-5.40); White Blood Cell (WBC) Count 6.8 thou/uL (4.8-10.8)
[2021-04-30 19:00] LABS: INR-International Normal Ratio 1.8; PTT 36.7 sec (22.9-36.1); Prothrombin Time 21.7 sec (12.0-14.7)
[2021-04-30 19:01] LABS: CKMB 1.7 ng/mL (0-6.6)
== END 2021-04-30 19:46 | disposition home or self-care (01) ==
LOC: NAV ERS 17:09
DX: R07.89 Other chest pain (principal); I11.0 Hypertensive heart disease with heart failure; I50.9 Heart failure, unspecified; E11.9 Type 2 diabetes mellitus without complications; E03.9 Hypothyroidism, unspecified; E78.5 Hyperlipidemia, unspecified; E78.00 Pure hypercholesterolemia, unspecified; I25.2 Old myocardial infarction; J44.9 Chronic obstructive pulmonary disease, unspecified; F17.220 Nicotine dependence, chewing tobacco, uncomplicated; Z79.82 Long term (current) use of aspirin; Z79.4 Long term (current) use of insulin; Z79.899 Other long term (current) drug therapy
CPT/HCPCS: 36415; 71045; 80053; 82550; 82553; 83880; 84484; 85025; 85610; 85730; 93005; 96374; 96375; J2270; J2405

== ENCOUNTER 2021-05-11 15:50 | Emergency (ER) | payer MEDICARE ==
[2021-05-11 16:25] LABS: #Basophils 0.1 thou/uL (0.0-0.2); #Eosinphils 0.2 thou/uL (0.0-0.7); #Lymphocytes 1.1 thou/uL (1.20-3.40); #Monocytes 0.7 thou/uL (0.11-0.59); #Neutrophils 4.1 thou/uL (1.40-6.50); %Basophils 1.1 % (0.0-1.0); %Eosinophils 3.1 % (0.0-10.0); %Lymphocytes 17.5 % (21.0-51.0); %Neutrophils 67.3 % (42.0-75.0); Hemoglobin 10.5 g/dL (12.0-16.0); Mean Corpuscular HGB CONC 29.4 g/dL (32.0-36.0); Mean Corpuscular Hemoglobin 26.2 pg (27.0-31.0); Mean Corpuscular Volume 89.1 fL (78.0-98.0); Mean Platelet Volume 7.2 fL (7.4-10.4); Platelet Count 148 thou/uL (130-400); RBC Distribution Width 16.7 % (11.5-14.5); White Blood Cell (WBC) Count 6.1 thou/uL (4.8-10.8)
[2021-05-11 16:41] LABS: Bilirubin Negative (Negative); Blood, Urine Trace (Negative); Glucose, Urine (Dipstick) 500 mg/dL (Negative); Ketone, Urine Negative (Negative); Leukocyte Small (Negative); Nitrite Negative (Negative); Protein, Urine (Dipstick) Negative (Neg-Trace)
[2021-05-11 16:47] LABS: ALT (SGPT) 24 U/L (8-55); AST (SGOT) 25 U/L (5-34); Albumin 3.4 g/dL (3.4-4.8); Alkaline Phosphatase 69 U/L (40-110); Anion Gap 15 mmol/L (10-20); BUN (Urea Nitrogen) 13 mg/dL (9.8-20.1); Bilirubin, Total 0.7 mg/dL (0.2-1.2); Calc. Creatinine Clearance 0 mL/min (70-130); Calcium 8.9 mg/dL (7.8-10.44); Carbon Dioxide 24 mmol/L (23-31); Chloride 100 mmol/L (98-107); Glucose 283 mg/dL (83-110); Potassium 4.6 mmol/L (3.5-5.1); Protein, Total 6.4 g/dL (5.8-8.1); Sodium 134 mmol/L (136-145)
[2021-05-11 16:57] LABS: Clarity Hazy (Clear)
[2021-05-11 16:58] LABS: Bacteria/HPF 1+ HPF (None Seen); RBC/HPF 0-3 HPF (0-3); Squamous Epithelial 0-3 HPF (0-3); WBC/HPF 21-50 HPF (0-3)
[2021-05-11] MEDS ORDERED: cefTRIAXone\\ROCEPHIN 1 GM VIAL ONE (17:13)
[2021-05-11] MEDS ORDERED: Sodium Chloride 0.9% 0 ML ONE (17:14)
[2021-05-11] MEDS ORDERED: Sodium Chloride 0.9% 100 ML ONE (17:15)
== END 2021-05-11 18:00 | disposition home or self-care (01) ==
LOC: NAV ERS 15:50
DX: N39.0 Urinary tract infection, site not specified (principal); E11.9 Type 2 diabetes mellitus without complications; E03.9 Hypothyroidism, unspecified; E78.5 Hyperlipidemia, unspecified; E78.00 Pure hypercholesterolemia, unspecified; I11.0 Hypertensive heart disease with heart failure; I50.9 Heart failure, unspecified; J44.9 Chronic obstructive pulmonary disease, unspecified; F17.220 Nicotine dependence, chewing tobacco, uncomplicated; Z79.82 Long term (current) use of aspirin; Z79.899 Other long term (current) drug therapy; Z79.84 Long term (current) use of oral hypoglycemic drugs
CPT/HCPCS: 51701; 80053; 81003; 81015; 85025; 87077; 87086; 87186; 96365; J0696; J3490